=== PATIENT | male | born 1995 | race Caucasian/White ===

== ENCOUNTER 2020-05-03 10:58 | Emergency (ER) | payer BC, SELFPAY ==
[2020-05-03 11:34] VITALS: BP 138/59; PULSE 61; RESP 14; TEMP 36.6; O2SAT 98
--- NOTE | 2020-05-03 11:56 | ED.EAR ---
HPI - Ear Problem General Chief complaint: Ear Stated complaint: Ear infection Time Seen by Provider: 05/03/20 11:53 Source: patient and RN notes reviewed Mode of arrival: ambulatory Limitations: no limitations History of Present Illness HPI Narrative: Patient presents today complaining of a 3-day history of right ear pain. Denies drainage, decreased hearing. Denies any additional symptoms today. History of otitis media every 3 to 6 months. Tympanoplasty x3 to the right ear. History of MS, type 1 diabetes, tonsillectomy. He has tried no [id number] medication for symptoms prior to arrival. Currently rates his pain 5/10. MD Complaint: ear pain Related Data Home Medications Medication Instructions Recorded Confirmed insulin aspart U-100 [Novolog 10 unit SUBCUT TID 05/03/20 05/03/20 PenFill U-100 Insulin] Allergies Allergy/AdvReac Type Severity Reaction Status Date / Time No Known Allergies Allergy Verified 05/03/20 11:40 Review of Systems Review of Systems: Narrative: CONSTITUTIONAL: Denies body aches, fever, chills, or sweats. EYES: Denies visual changes, redness, or discharge. ENT: Denies rhinorrhea, congestion, sore throat. +Right earPain CARDIOVASCULAR: Denies chest pain, palpitations, or edema. RESPIRATORY: Denies cough or dyspnea. GASTROINTESTINAL: Denies abdominal pain, nausea, vomiting, or diarrhea. GENITOURINARY: Denies dysuria or hematuria. SKIN: Denies rash, itching, or wounds. MUSCULOSKELETAL: Denies back pain, joint pain, or myalgia. NEUROLOGIC: Denies headache, numbness, tingling, or weakness. PSYCH: Denies depression or anxiety. [facility] Past Medical History Medical History (Updated 05/03/20 @ 12:02 by Mamie Box, [employer], ) Anxiety Multiple sclerosis Type 1 diabetes Surgical History Surgical History (Updated 05/03/20 @ 11:59 by Mamie Box, [facility], ) History of tympanoplasty of right ear Hx of tonsillectomy Family History Family History (Updated 04/13/16 @ 23:19 by DOCTOR UNKNOWN) Sibling Asthma Family history of diabetes mellitus in first degree relative Father Family history of diabetes mellitus in first degree relative Social History Social History Smoking status: Never smoker Alcohol intake: current Comments At time of signature, I have reviewed and agree with nursing past medical, surgical, social and family history unless otherwise noted. Please see nursing chart for further information. There is no relevant family history pertinent to the presenting complaint Exam Narrative: Exam Narrative: GENERAL: Well-appearing, well-nourished, and in no acute distress. HEAD: Normocephalic, atraumatic. EYES: EOMI. No redness or drainage. Conjunctivae normal. ENT: Mucous membranes pink and moist. Nares clear. No rhinorrhea. Right TM is moderately erythematous and slightly bulging with purulent material Throat normal. Uvula midline. NECK: Normal AROM. Supple. No lymphadenopathy. CHEST: No respiratory distress. EXTREMITIES: Normal range of motion. No edema. SKIN: Warm, dry, no rash. Capillary refill normal. Normal skin turgor. NEURO: No focal deficits. Alert and oriented x3. Gait steady. PSYCH: Normal affect. No signs of depression or anxiety. Course Vital Signs Vital signs: Vital Signs Temperature 97.8 F 05/03/20 11:34 Pulse Rate 61 05/03/20 11:34 Respiratory Rate 14 05/03/20 11:34 Blood Pressure 138/59 L 05/03/20 11:34 Pulse Oximetry 98 05/03/20 11:34 Temperature 97.8 F 05/03/20 11:34 Pulse Rate 61 05/03/20 11:34 Respiratory Rate 14 05/03/20 11:34 Blood Pressure 138/59 L 05/03/20 11:34 Pulse Oximetry 98 05/03/20 11:34 Reviewed. Pt has been instructed to follow up with his PCP regarding his elevated blood pressure today. Medical Decision Making Differential Diagnosis Differential Diagnosis: Otitis media, otitis externa, ruptured TM, serous otitis, eustachian tube dysfunction, cerumen impaction V
== END 2020-05-03 12:06 | disposition home or self-care (01) ==
PROVIDERS: Emergency Provider Nurse Practitioner
DX: H66.001 Acute suppurative otitis media without spontaneous rupture of ear drum, right ear (principal); G35 Multiple sclerosis; E10.9 Type 1 diabetes mellitus without complications
CPT/HCPCS: 99213; G0463

== ENCOUNTER 2020-11-20 12:25 | Emergency (ER) | payer BC, SELFPAY ==
--- NOTE | 2020-11-20 12:28 | ED.GENADULT ---
HPI - General Adult General Chief complaint: Ear Stated complaint: Ear Pain Time Seen by Provider: 11/20/20 12:27 Source: patient Mode of arrival: ambulatory Limitations: no limitations History of Present Illness HPI narrative: 25-year-old male patient presents to the [facility] with complaints of right ear pain x1 week. Patient states he is prone to ear infections and typically gets them about 2-3 times a year. Patient states he has tried Sudafed as well as a nasal spray. Patient states he has had a little bit of a stuffy nose and runny nose. Denies any fevers, body aches or chills. Denies any sore throat, coughing, chest pain or shortness of breath. Related Data Home Medications Medication Instructions Recorded Confirmed insulin aspart U-100 [Novolog 100 sliding scale dose CONTINUOUS 11/20/20 11/20/20 U-100 Insulin aspart] SUBCUTANEOUS INFUSION DAILY Allergies Allergy/AdvReac Type Severity Reaction Status Date / Time No Known Allergies Allergy Verified 11/20/20 12:51 Review of Systems Review of Systems: Narrative: CONSTITUTIONAL: Denies fever, chills, or sweats. EYES: Denies visual changes, redness, or discharge. ENT: Positive rhinorrhea, congestion, denies sore throat, positive right otalgia. CARDIOVASCULAR: Denies chest pain, palpitations, or edema. RESPIRATORY: Denies cough or dyspnea. GASTROINTESTINAL: Denies abdominal pain, nausea, vomiting, or diarrhea. GENITOURINARY: Denies dysuria or hematuria. SKIN: Denies rash or itching. MUSCULOSKELETAL: Denies back pain, joint pain, or myalgia. NEUROLOGIC: Denies headache, numbness, or weakness. PSYCHIATRIC: Denies anxiety or depression. [facility] Past Medical History Medical History Anxiety Multiple sclerosis Type 1 diabetes Surgical History Surgical History History of tympanoplasty of right ear Hx of tonsillectomy Family History Family History Sibling Asthma Family history of diabetes mellitus in first degree relative Father Family history of diabetes mellitus in first degree relative Social History Social History Smoking status: Never smoker Alcohol intake: current Comments At the time of my signature I agree with nursing past medical history, surgical, social, and family history. There is no relevant family history pertinent to the presenting complaint. Exam Narrative: Exam Narrative: GENERAL: Well-appearing, well-nourished, and in no acute distress. HEAD: Normocephalic, atraumatic. EYES: PERRLA and EOMI. ENT: Nares clear, rhinorrhea or epistaxis. Mucous membranes moist. Posterior pharynx no erythema, tonsillar Bruce, exudates or lesions present. The right TM does have some erythema present on exam. NECK: Supple. No lymphadenopathy CHEST: Clear to auscultation. No respiratory distress. HEART: Regular rate and rhythm. No murmur heard. Normal peripheral pulses. ABDOMEN: Soft, nontender, nondistended, normal active bowel sounds. EXTREMITIES: Normal range of motion. No edema. SKIN: Warm, dry, no rash. NEURO: No focal deficits. Alert and oriented x3. Course Vital Signs Vital signs: Vital Signs Temperature 36.6 C 11/20/20 12:49 Pulse Rate 55 L 11/20/20 12:49 Respiratory Rate 20 11/20/20 12:49 Blood Pressure 132/70 11/20/20 12:49 Pulse Oximetry 99 11/20/20 12:49 Temperature 36.6 C 11/20/20 12:55 Pulse Rate 55 L 11/20/20 12:55 Respiratory Rate 20 11/20/20 12:55 Blood Pressure 132/70 11/20/20 12:55 Pulse Oximetry 99 11/20/20 12:55 Vital signs reviewed Medical Decision Making Differential Diagnosis Differential Diagnosis: Differential diagnosis: Allergic rhinitis, chronic sinusitis, tonsillitis, acute sinusitis, infectious mononucleosis, seasonal influenza, pertussis, diphtheria, meningo
[2020-11-20 12:49] VITALS: BP 132/70; PULSE 55; RESP 20; TEMP 36.6; O2SAT 99
[2020-11-20 12:55] VITALS: BP 132/70; PULSE 55; RESP 20; TEMP 36.6; O2SAT 99
== END 2020-11-20 13:15 | disposition home or self-care (01) ==
PROVIDERS: Emergency Provider Nurse Practitioner Family
DX: H66.91 Otitis media, unspecified, right ear (principal); G35 Multiple sclerosis; E10.9 Type 1 diabetes mellitus without complications
CPT/HCPCS: 99213; G0463

== ENCOUNTER 2020-12-08 10:56 | Emergency (ER) | payer BC, SELFPAY ==
[2020-12-08 11:12] VITALS: BP 135/55; PULSE 66; RESP 16; TEMP 36.6; O2SAT 96
[2020-12-08 11:22] VITALS: BP 135/55; PULSE 66; RESP 16; TEMP 36.6; O2SAT 96
--- NOTE | 2020-12-08 11:44 | ED.EAR ---
HPI - Ear Problem General Chief complaint: Ear Stated complaint: Ear Infection Time Seen by Provider: 12/08/20 11:33 Source: patient and RN notes reviewed Mode of arrival: ambulatory Limitations: no limitations History of Present Illness HPI Narrative: Patient presents today with a 2.5-week history of right ear pain. He was seen at [facility] and 11/20/2020, diagnosed with right otitis media and given a prescription for 7 days of Augmentin, which he has finished. States the pain has worsened since his last visit. He also has some mild hearing loss. Patient has been taking Zyrtec. History of 3 right tympanic membrane repairs many years ago. He occasionally sees an ear nose and throat doctor for persistent otitis media, but has not had a visit recently. Denies any additional symptoms. MD Complaint: ear pain Related Data Home Medications Medication Instructions Recorded Confirmed insulin aspart U-100 [Novolog 100 sliding scale dose CONTINUOUS 11/20/20 12/08/20 U-100 Insulin aspart] SUBCUTANEOUS INFUSION DAILY Allergies Allergy/AdvReac Type Severity Reaction Status Date / Time No Known Allergies Allergy Verified 12/08/20 11:21 Review of Systems Review of Systems: Narrative: CONSTITUTIONAL: Denies body aches, fever, chills, or sweats. EYES: Denies visual changes, redness, or discharge. ENT: Denies rhinorrhea, congestion, sore throat. + Right ear pain and decreased hearing CARDIOVASCULAR: Denies chest pain, palpitations, or edema. RESPIRATORY: Denies cough or dyspnea. GASTROINTESTINAL: Denies abdominal pain, nausea, vomiting, or diarrhea. GENITOURINARY: Denies dysuria or hematuria. SKIN: Denies rash, itching, or wounds. MUSCULOSKELETAL: Denies back pain, joint pain, or myalgia. NEUROLOGIC: Denies headache, numbness, tingling, or weakness. PSYCH: Denies depression or anxiety. [facility] Past Medical History Medical History Anxiety Multiple sclerosis Type 1 diabetes Surgical History Surgical History History of tympanoplasty of right ear Hx of tonsillectomy Family History Family History Sibling Asthma Family history of diabetes mellitus in first degree relative Father Family history of diabetes mellitus in first degree relative Social History Social History Smoking status: Never smoker Alcohol intake: current Comments At time of signature, I have reviewed and agree with nursing past medical, surgical, social and family history unless otherwise noted. Please see nursing chart for further information. There is no relevant family history pertinent to the presenting complaint Exam Narrative: Exam Narrative: GENERAL: Well-appearing, well-nourished, and in no acute distress. HEAD: Normocephalic, atraumatic. EYES: EOMI. No redness or drainage. Conjunctivae normal. ENT: Mucous membranes pink and moist. Nares clear. No rhinorrhea. Left TM normal. Right TM erythematous and bulging with purulent material. Throat normal. Uvula midline. NECK: Normal AROM. Supple. No lymphadenopathy. CHEST: No respiratory distress. MUSCULOSKELETAL: No bony tenderness. EXTREMITIES: Normal range of motion. No edema. SKIN: Warm, dry, no rash. Capillary refill normal. Normal skin turgor. NEURO: No focal deficits. Alert and oriented x3. Gait steady. PSYCH: Normal affect. No signs of depression or anxiety. Course Vital Signs Vital signs: Vital Signs Temperature 97.9 F 12/08/20 11:12 Pulse Rate 66 12/08/20 11:12 Respiratory Rate 16 12/08/20 11:12 Blood Pressure 135/55 L 12/08/20 11:12 Pulse Oximetry 96 12/08/20 11:12 Temperature 97.9 F 12/08/20 11:22 Pulse Rate 66 12/08/20 11:22 Respiratory Rate 16 12/08/20 11:22 Blood Pressure 135/55 L 12/08/20 11:22 Pulse Oximetry 96
== END 2020-12-08 11:50 | disposition home or self-care (01) ==
PROVIDERS: Emergency Provider Nurse Practitioner
DX: H66.001 Acute suppurative otitis media without spontaneous rupture of ear drum, right ear (principal); F41.9 Anxiety disorder, unspecified; G35 Multiple sclerosis; E10.9 Type 1 diabetes mellitus without complications
CPT/HCPCS: 99213; G0463